=== PATIENT | female | born 1945 | race Caucasian/White ===

== ENCOUNTER → 2017-01-27 | Outpatient (CLI) | payer MEDICARE, OTHER ==
[~2017-01-27] MED LIST: ASPIRIN325 MG PO; FEOSOL325 MG PO; IRON18 MG; MULTI VITAMIN PO; MULTI VITAMIN1 EACH PO; PLEXUS PO; PLEXUS PROBIOTIC PO; PLEXUS SLIM PO; PROBIOTIC1 EAC1 PO
[2017-01-27 15:32] LABS: BASOPHIL % 0.4 %; EOSINOPHIL # 0.1 K/uL (0.0-0.5); EOSINOPHIL % 1.2 %; HEMATOCRIT 38.9 % (33.0-46.0); HEMOGLOBIN 12.9 g/dL (10.0-15.0); IMMATURE GRANULOCYTE % 0.4 %; LYMPHOCYTE # 1.7 K/uL (0.8-4.0); LYMPHOCYTE % 22.3 %; MCH 30.7 pg (27.0-34.0); MCHC 33.2 gm/dL (32.0-36.5); MCV 92.6 fl (83.0-98.0); MONOCYTE # 0.4 K/uL (0.0-1.0); MONOCYTE % 4.9 %; MPV 8.5 fl (9.4-12.4); NEUTROPHIL # (ANC) 5.4 K/uL (1.8-7.8); NEUTROPHIL % 70.8 %; NRBC % 0 /100WBC (0-0.00); PLATELET COUNT 235 K/uL (150-450); WBC 7.6 K/uL (4.0-11.0)
[2017-01-27 15:40] LABS: PROTIME 9.9 SECONDS (9.6-11.1)
== END | disposition disaster alternative care site (69) ==
LOC: GOPD 01-23 15:30
PROVIDERS: Internal Medicine Hematology & Oncology
PROC: 0JBC3ZX Excision of Pelvic Region Subcutaneous Tissue and Fascia, Percutaneous Approach, Diagnostic (ICD-10-PCS; principal; 2017-01-27)
DX: C79.89 Secondary malignant neoplasm of other specified sites (principal); C18.2 Malignant neoplasm of ascending colon; D50.9 Iron deficiency anemia, unspecified; D70.1 Agranulocytosis secondary to cancer chemotherapy
CPT/HCPCS: J2001; J2250; J2405; J3010

== ENCOUNTER → 2017-02-24 | Outpatient (CLI) | payer MEDICARE, OTHER | END | disposition disaster alternative care site (69) | LOC: GRAD 10:13 | DX: R10.9 Unspecified abdominal pain (principal); N20.0 Calculus of kidney; R91.1 Solitary pulmonary nodule ==

== ENCOUNTER 2017-03-22 08:20 | Emergency (ER) | payer MEDICARE, OTHER ==
--- NOTE | ~2017-03-22 | ER ---
PATIENT'S NAME: ARMANI HANSON [facility] AGE: 71 Y [address] ROOM: [place] [address] LOCATION: ED ADMIT DATE: 03/22/2017 ER/Outpatient Report DISCHARGE DATE: 03/22/2017 FAMILY PHYSICIAN: Mauricio Jorge MD ATTENDING PHYSICIAN: Sumeet Lincoln CHIEF COMPLAINT: Stiff neck. HISTORY OF PRESENT ILLNESS: The patient states that since she was on a friend's couch, sitting unusually on Friday, she has had significant right-sided neck stiffness and pain. It keeps her awake at night, but it aches all the time. She has been trying heat and ice for it. She denies any fevers, chills, headache, vision changes, or other sensory deficits. She has no other complaints. Denies any neurologic changes in her arms. She does have a history of colon cancer and is actually receiving chemo for same. She denies any trauma. PAST MEDICAL HISTORY: Documented on the record and reviewed by me. SOCIAL HISTORY: Documented on the record and reviewed by me. MEDICATIONS: Documented on the record and reviewed by me. ALLERGIES: DOCUMENTED ON THE RECORD AND REVIEWED BY ME. REVIEW OF SYSTEMS: All systems reviewed and negative except as noted in the HPI. PHYSICAL EXAMINATION: VITAL SIGNS: Blood pressure 164/89, pulse 78, respiratory rate is 18, temperature 97.8, SpO2 is 97% on room air. Pain is rated 8/10. GENERAL: Age appropriate female, sitting upright on the exam chair, in no obvious pain or distress, smiling. NEUROLOGIC: Awake and alert. GCS is 15. No focal deficits. No asymmetry. Vision is grossly intact. No neurologic deficits of the bilateral upper extremities. HEENT: Normocephalic, atraumatic. Eyes are PERRL. Extraocular movements intact. Oropharynx is clear. Moist. NECK: Supple. Full active and passive range of motion. Trachea is midline. No cervical spine tenderness. Tenderness throughout palpation of the right PATIENT'S NAME: ARMANI HANSON [facility] AGE: 71 Y [address] ROOM: [place] [address] LOCATION: [facility] ADMIT DATE: 03/22/2017 ER/Outpatient Report DISCHARGE DATE: 03/22/2017 FAMILY PHYSICIAN: Mauricio Jorge MD ATTENDING PHYSICIAN: Sumeet Lincoln trapezius. No significant pain with activation of the shoulder. Slight pain with shrugging of the right shoulder. CHEST: Heart is regular rate and rhythm. LUNGS: Clear to auscultation bilateral. BACK: Otherwise nontender. No CVA tenderness. EXTREMITIES: Warm and well perfused. Symmetric clerk rating strength throughout. Normal and symmetric strength in the shoulders, elbows, hands, and wrists bilateral. Lower extremities without edema. SKIN: Warm, dry, and intact. LABS AND X-RAYS: None. IMPRESSION: Neck muscle spasm. EMERGENCY DEPARTMENT COURSE: The patient was seen and evaluated. Not consistent with the infection, meningitis, or metastatic disease. Based on current presentation course history, I believe muscle spasms are most likely. Recommend anti- inflammatories, ice, heat, and diazepam as needed for spasm. I explained and encourage extreme caution with use diazepam based on the patient's age and increased sensitivity to medications. She expressed her understanding. She needs to follow up with Dr. Jorge on Friday or return if worse. MD LAWRENCE ORDONEZ/modl /[id number] d: 03/22/17 1138 t: 03/25/17 2213, OUTPATIENT REPORT
== END 2017-03-22 08:49 | disposition disaster alternative care site (69) ==
LOC: GMED 08:20
DX: M62.838 Other muscle spasm (principal)

== ENCOUNTER → 2017-04-16 | Outpatient (CLI) | payer MEDICARE, OTHER | END | disposition disaster alternative care site (69) | LOC: GRAD 08:45 | DX: C18.2 Malignant neoplasm of ascending colon (principal); C78.6 Secondary malignant neoplasm of retroperitoneum and peritoneum; D70.1 Agranulocytosis secondary to cancer chemotherapy; D50.9 Iron deficiency anemia, unspecified; K12.32 Oral mucositis (ulcerative) due to other drugs; I70.90 Unspecified atherosclerosis; R11.2 Nausea with vomiting, unspecified ==

== ENCOUNTER 2017-05-29 08:50 | Emergency (ER) | payer MEDICARE, OTHER ==
--- NOTE | ~2017-05-29 | ER ---
PATIENT'S NAME: ARMANI HANSON [facility] AGE: 71 Y [address] ROOM: [place] [address] LOCATION: [facility] ADMIT DATE: 05/29/2017 ER/Outpatient Report DISCHARGE DATE: 05/29/2017 FAMILY PHYSICIAN: Mauricio Jorge MD ATTENDING PHYSICIAN: Balta Mckeon TIME OF ARRIVAL: 0850 hours. TIME OF EVALUATION: 0854 hours. CHIEF COMPLAINT: Neck pain. HISTORY OF PRESENT ILLNESS: The patient is a 71-year-old female who presents to the emergency department today with chief complaint of neck pain. The patient reports she has a history of similar episodes in the past. She was seen in March for the same thing. This feels like the same thing. 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 She was lying back in the chair, getting her hair washed when she developed a cramp in her neck, is progressively continued since. She has been required a chiropractor twice without any relief. She denies any numbness or tingling in her arms. Denies any fevers or chills. No neck pain. No nausea or vomiting. No chest pain. No shortness of breath. No cough. The patient does have a history of colon cancer. Pain is currently 7/10 in severity. It is sharp. It is worse with movement. It is primarily on the right side of her neck. PAST MEDICAL HISTORY: Colon cancer, on chemotherapy. PAST SURGICAL HISTORY: Colon resection, cataract of eye left, hysterectomy, lumpectomy of left breast. SOCIAL HISTORY: The patient denies any tobacco, alcohol, or illicit drug use. ALLERGIES: NO KNOWN DRUG ALLERGIES. MEDICATIONS: Please see list. PATIENT'S NAME: ARMANI HANSON [facility] AGE: 71 Y [address] ROOM: [place], [place] [address] LOCATION: [facility] ADMIT DATE: 05/29/2017 ER/Outpatient Report DISCHARGE DATE: 05/29/2017 FAMILY PHYSICIAN: Mauricio Jorge MD ATTENDING PHYSICIAN: Balta Mckeon PRIMARY CARE DOCTOR: Mauricio Jorge MD. REVIEW OF SYSTEMS: All systems are reviewed by myself are negative with the exception of those discussed in HPI and past medical history. PHYSICAL EXAMINATION: VITAL SIGNS: Weight 81.4 kg, blood pressure 186/103, pulse 84, respiratory rate 20, temperature 97.6, oxygen saturation 95% on room air. GENERAL: The patient is a 71-year-old female, appears stated age, in mild acute distress secondary to pain in her neck HEENT. HEAD normocephalic, atraumatic. Pupils are equal, round, and reactive to light. Extraocular motions are intact. Nares are patent bilaterally. TMs are clear. NECK: Supple. She does have some point tenderness to palpation of the right paraspinal musculature of the cervical spine. There is no midline tenderness to palpation. CARDIOVASCULAR: Regular rate and rhythm. No murmurs, rubs, or gallops. LUNGS: Clear to auscultation bilaterally. No wheezes, rales, or rhonchi. ABDOMEN: Soft, nontender, and nondistended. No rebound, rigidity, or guarding. MUSCULOSKELETAL: The patient moves all 4 extremities. SKIN: Warm and dry. LABORATORY DATA AND X-RAYS: CT scan of the neck and cervical spine is obtained. I have discussed results with the radiologist. It shows degenerative changes to C6-C7. There is no evidence of lytic lesions. IMPRESSION: 1. Acute neck pain with evidence of degenerative changes. 2. Initial visit. EMERGENCY DEPARTMENT COURSE: The patient brought back to the examination room. Seen and evaluated by myself. Imaging is obtained as described above. The patient is given 0.5 mg of Dilaudid IM with improvement the patient's symptoms. I have discussed results with the patient. I have written a prescription for [place] with sedation warning. The patient is also to use head and ice as well as Biofreeze. I have discussed following up with primary care doctor in 2-3 days for re-evaluation. I have discussed return to care instructions including worsening symptoms or any other concerns to return to the emergency department as soon as possible. The patient is agreeable, is agreeable without further questions at this time. PATIENT'S NAME: ARMANI HANSON [facility] AGE: 71 Y [address] ROOM: [place], [place] [address] LOCATION: [facility] ADMIT DATE: 05/29/2017 ER/Outpatient Report DISCHARGE DATE: 05/29/2017 FAMILY PHYSICIAN: Mauricio Jorge MD ATTENDING PHYSICIAN: Balta Mckeon DISPOSITION,: The patient is discharged to home in good condition. DO EFRAIN MANUEL/genie /[id number] d: 05/29/17 1613 t: 06/01/17 0659, OUTPATIENT REPORT
== END 2017-05-29 09:47 | disposition disaster alternative care site (69) ==
LOC: GMED 08:50
DX: M50.323 Other cervical disc degeneration at C6-C7 level (principal); C18.9 Malignant neoplasm of colon, unspecified; Z98.42 Cataract extraction status, left eye; Z90.710 Acquired absence of both cervix and uterus; Z98.890 Other specified postprocedural states; Z90.49 Acquired absence of other specified parts of digestive tract; Z79.899 Other long term (current) drug therapy
CPT/HCPCS: J1170

== ENCOUNTER → 2017-06-17 | Outpatient (CLI) | payer MEDICARE, OTHER | END | disposition disaster alternative care site (69) | LOC: GRAD 13:54 | DX: C18.2 Malignant neoplasm of ascending colon (principal); D50.9 Iron deficiency anemia, unspecified; D70.1 Agranulocytosis secondary to cancer chemotherapy; D70.9 Neutropenia, unspecified; C78.6 Secondary malignant neoplasm of retroperitoneum and peritoneum; K12.32 Oral mucositis (ulcerative) due to other drugs; K57.30 Diverticulosis of large intestine without perforation or abscess without bleeding; K63.89 Other specified diseases of intestine; N20.0 Calculus of kidney; K76.0 Fatty (change of) liver, not elsewhere classified; I70.90 Unspecified atherosclerosis; Z90.49 Acquired absence of other specified parts of digestive tract ==